=== PATIENT | female | born 1960 | race Caucasian/White ===

== ENCOUNTER → 2016-12-22 | Outpatient (CLI) | payer OTHER ==
--- NOTE | 2016-12-22 14:32 | REP ---
DIGITAL SCREENING MAMMOGRAPHY WITH CAD: COMPARISON MAMMOGRAPHY: January 20, 2015, January 27, 2012, and May 26, 2009. FINDINGS: Mild scattered fibroglandular elements are seen. There is a stable nodular density in the upper outer quadrant of the right breast unchanged. There is a neodensity however in the left central breast inferior and medial quadrant which merits further evaluation. This measures 8 mm in greatest diameter. No spiculation or microcalcification is appreciated. No worrisome skin change is seen. The mammogram is otherwise unremarkable. IMPRESSION: BIRADS category 0 incomplete breast imaging. Nodular neodensity inferomedial quadrant left breast. Diagnostic left breast mammography and focused left breast sonography recommended. BI-RADS/ACR category 0 mammogram, incomplete. Additional imaging and/or prior images are needed before a final assessment can be assigned. This mammogram was interpreted with the aid of an FDA-approved computer-aided detection system. The patient states she/he had a clinical breast exam in December 2016 . The patient letter being requested is M0.
== END ==
LOC: M WHC 11:11
PROVIDERS: ATTEND Nurse Practitioner Family
DX: R92.2 Inconclusive mammogram (principal)

== ENCOUNTER → 2016-12-28 | Outpatient (CLI) | payer OTHER ==
--- NOTE | 2016-12-28 14:13 | REP ---
DIAGNOSTIC MAMMOGRAM LEFT BREAST WITH LEFT BREAST ULTRASOUND: Spot compression views of the left breast are performed and correlated with the recent mammogram of 12/22/2016. These spot compression views confirm the presence of an oval, well-defined nodule in the left breast at about 6-o'clock position. Diameter is approximately 7-8 mm. Real-time sonographic evaluation of left breast is performed inferiorly. At 6-o'clock position, there is an oval cyst measuring 5 x 3 x 6 mm corresponding to the mammographic abnormality. IMPRESSION: ACR 2 benign. Subcentimeter nodule at 6-o'clock position left breast appears benign by mammography and by ultrasound represents a benign cyst. Suggest followup mammogram in 1 year. BI-RADS/ACR category 2 mammogram. Benign finding(s). Routine annual screening mammography (for women over age 40). The patient letter being requested is M1. Signed by Cheo Saha MD 12/28/2016 08:11 P
== END ==
LOC: M RAD 11:49
PROVIDERS: ATTEND Nurse Practitioner Family
DX: Z12.31 Encounter for screening mammogram for malignant neoplasm of breast (principal)

== ENCOUNTER → 2017-06-02 | Outpatient (CLI) | payer OTHER ==
[~2017-06-02] MED LIST: ATEN50TA2 PO; GABA-282 PO; OMEP40CA2 PO; ROLA1CHW PO; SIMV20TA2 PO; TUMS500C PO; VITA1CAP40 PO; ZOFR4TAB3 PO; ZOLP10TA2 PO
--- NOTE | 2017-06-02 13:12 | REP ---
TRIPLE PHASE BONE SCAN ANKLES AND FEET: Following the intravenous administration of 21.8 mCi of technetium 99m MDP, patient's ankles and feet are imaged in the flow phase in the anterior and posterior projections showing symmetrical blood flow. Immediate blood pool and 2 hour delayed images are performed of the ankles and feet in the anterior, posterior, both lateral and plantar projections. There is symmetrical blood pooling and symmetrical osseous delayed activity in the ankles and feet. No abnormal increased or decreased radiotracer uptake is seen in either ankle or foot region. IMPRESSION: Negative triple phase bone scan ankles and feet. Signed by Cheo Saha MD 06/02/2017 01:32 P
== END ==
LOC: M RAD 09:53
PROVIDERS: ATTEND Physical Medicine & Rehabilitation
DX: G90.522 Complex regional pain syndrome I of left lower limb (principal)
CPT/HCPCS: 78315; A9503

== ENCOUNTER → 2017-06-24 | Outpatient (REF) | payer OTHER ==
[2017-06-24 13:23] LABS: ALBUMIN/GLOBULIN RATIO 1.43 (1.00-1.93); ALKALINE PHOSPHATASE 54 U/L (45-117); ALT/SGPT 58 U/L (12-78); ANION GAP 10 MEQ/L (8-16); AST/SGOT 42 U/L (15-37); BLOOD UREA NITROGEN 12 MG/DL (7-18); CALCIUM LEVEL 8.7 MG/DL (8.5-10.1); CARBON DIOXIDE LEVEL 25 MEQ/L (21-32); CHLORIDE LEVEL 108 MEQ/L (98-107); CHOLESTEROL LEVEL 144 MG/DL (<200); CREATININE FOR GFR 0.84 MG/DL (0.55-1.02); FREE T4 1.15 NG/DL (0.76-1.46); GLOMERULAR FILTRATION RATE > 60.0 (>51); GLUCOSE, FASTING 91 MG/DL (70-105); POTASSIUM SERUM 4.1 MEQ/L (3.5-5.1); SODIUM LEVEL 143 MEQ/L (136-145); TOTAL PROTEIN 6.8 GM/DL (6.4-8.2); TRIGLYCERIDES LEVEL 160 MG/DL (<150)
== END ==
LOC: M SFHCPLAZ 10:28
PROVIDERS: ATTEND Nurse Practitioner Family
DX: I10 Essential (primary) hypertension (principal); E78.2 Mixed hyperlipidemia; E55.9 Vitamin D deficiency, unspecified

== ENCOUNTER 2017-07-07 21:14 | Emergency (ER) | payer OTHER ==
[~2017-07-07] VITALS: Ht 157.5 cm; Wt 90.5 kg
[2017-07-07] MEDS ORDERED: GABA-282 PO (21:48)
[2017-07-07] MEDS ORDERED: OMEP40CA2 PO (21:48)
[2017-07-07] MEDS ORDERED: TUMS500C PO (21:48)
[2017-07-07] MEDS ORDERED: SIMV20TA2 PO (21:48)
[2017-07-07] MEDS ORDERED: ROLA1CHW PO (21:48)
[2017-07-07] MEDS ORDERED: ATEN50TA2 PO (21:48)
[2017-07-07] MEDS ORDERED: ZOLP10TA2 PO (21:48)
[2017-07-07] MEDS ORDERED: VITA1CAP40 PO (21:48)
[2017-07-07] MEDS ORDERED: ONDANSETRON 4 MG ORAL DISINTEGRATING TAB (S0181) PO ONE (22:45)
[2017-07-07] MEDS ORDERED: NORCO, ANEXSIA 5/325MG TABLET (HYDROcodone/ACETAMINOPHEN) PO ONE (22:45)
[2017-07-07 23:13] LABS: BASO % 0.6 % (0.0-1.0); EOS # 0.2 K/mm3 (0.0-0.50); EOS % 2.4 % (0.0-3.0); LARGE UNSTAINED CELL # 0.1 K/mm3 (0.0-0.4); LARGE UNSTAINED CELL % 0.9 % (0.0-4.0); LYMPH # 1.7 K/mm3 (1.5-4.5); LYMPH % 19.9 % (24.0-44.0); MEAN CORPUSCULAR HEMOGLOBIN 31.3 pg (27.0-33.0); MEAN CORPUSCULAR HGB CONC 33.2 g/dl (32.0-36.5); MEAN CORPUSCULAR VOLUME 94.2 fl (80.0-96.0); MONO # 0.5 K/mm3 (0.0-0.8); MONO % 6.3 % (0.0-5.0); NEUTROPHILS # 5.7 K/mm3 (1.8-7.7); PLATELET COUNT, AUTOMATED 282 k/mm3 (150-450); RED CELL DISTRIBUTION WIDTH 12.9 % (11.5-14.5); WHITE BLOOD COUNT 8.1 K/mm3 (4.0-10.0)
[2017-07-07 23:30] LABS: ALBUMIN 4.3 GM/DL (3.2-5.2); ALBUMIN/GLOBULIN RATIO 1.08 (1.00-1.93); ALKALINE PHOSPHATASE 64 U/L (45-117); ALT/SGPT 52 U/L (12-78); AMYLASE 41 U/L (25-115); ANION GAP 5 MEQ/L (8-16); AST/SGOT 42 U/L (15-37); BILIRUBIN,DIRECT 0.2 MG/DL (0.0-0.2); BILIRUBIN,TOTAL 0.9 MG/DL (0.2-1.0); BLOOD UREA NITROGEN 11 MG/DL (7-18); CALCIUM LEVEL 9.5 MG/DL (8.5-10.1); CARBON DIOXIDE LEVEL 29 MEQ/L (21-32); CHLORIDE LEVEL 106 MEQ/L (98-107); CREATININE FOR GFR 0.88 MG/DL (0.55-1.02); GLOMERULAR FILTRATION RATE > 60.0 (>51); GLUCOSE, FASTING 126 MG/DL (70-105); POTASSIUM SERUM 3.8 MEQ/L (3.5-5.1); SODIUM LEVEL 140 MEQ/L (136-145); TOTAL PROTEIN 8.3 GM/DL (6.4-8.2)
[2017-07-08] MEDS ORDERED: ZOFR4TAB3 PO (00:04)
[2017-07-08 00:09] VITALS: BP 152/88
--- NOTE | 2017-07-08 00:10 | REPUSA ---
Clinical history: Right upper quadrant pain. Findings: The pancreas is limited in visualization secondary to overlying bowel gas, but appears kimber sly unremarkable. The liver demonstrates increased echotexture and echogenicity, with no mass lesions . The gallbladder is unremarkable. The common bile duct measures 4 mm and is within normal limits. Th e right kidney measures 11 cm in length and is unremarkable. There is no ascites. Impression: Fatty infiltration of the liver. Otherwise unremarkable ultrasound examination of the rig ht upper quadrant.
== END 2017-07-08 00:10 | disposition home or self-care (01) ==
LOC: M ED 21:14
DX: K29.00 Acute gastritis without bleeding (principal); K21.9 Gastro-esophageal reflux disease without esophagitis; I10 Essential (primary) hypertension; E78.70 Disorder of bile acid and cholesterol metabolism, unspecified; Z87.42 Personal history of other diseases of the female genital tract; Z79.899 Other long term (current) drug therapy

== ENCOUNTER → 2017-07-08 | Outpatient (CLI) | payer OTHER | LOC: M WUC 17:19 | PROVIDERS: ATTEND Nurse Practitioner Family | DX: R10.13 Epigastric pain (principal) ==

== ENCOUNTER 2017-07-13 15:57 | Emergency (ER) | payer OTHER ==
[~2017-07-13 15:57] MED LIST changes: +EPINEPHrine 1MG/10ML SYRINGE 1.5IN IV STA
[2017-07-13] MEDS ORDERED: SODIUM BICARBONATE 8.4% INJ 50 ML SYRINGE ONE (15:58)
[2017-07-13] MEDS ORDERED: EPINEPHrine 1MG/10ML SYRINGE 1.5IN ONE (15:58)
[2017-07-13] MEDS ORDERED: SODIUM BICARBONATE 8.4% INJ 50 ML SYRINGE IV STA (15:58)
[2017-07-13] MEDS ORDERED: EPINEPHrine 1MG/10ML SYRINGE 1.5IN IV STA ×8 (16:00→16:33)
[2017-07-13] MEDS ORDERED: methylPREDNISolone INJ 125 MG/2 ML VIAL (J2930) As Ordered ONE (16:12)
[2017-07-13] MEDS ORDERED: diphenhydrAMINE INJ 50MG/ML VIAL (J1200) As Ordered ONE (16:12)
[2017-07-13] MEDS ORDERED: methylPREDNISolone INJ 125 MG/2 ML VIAL (J2930) IV ONE (16:14)
[2017-07-13] MEDS ORDERED: diphenhydrAMINE INJ 50MG/ML VIAL (J1200) IV STA (16:15)
[2017-07-13] MEDS ORDERED: CALCIUM CHLORIDE 10% 1 GM/10 ML SYR IV STA ×2 (16:27→18:00)
[2017-07-13] MEDS ORDERED: CALCIUM CHLORIDE 10% 1 GM in D5W 100 ML IV ONE (16:27)
[2017-07-13 17:19] LABS: ALBUMIN 3.3 GM/DL (3.2-5.2); ALBUMIN/GLOBULIN RATIO 0.97 (1.00-1.93); BILIRUBIN,DIRECT 0.6 MG/DL (0.0-0.2); BILIRUBIN,TOTAL 1.5 MG/DL (0.2-1.0); CALCIUM LEVEL 10.8 MG/DL (8.5-10.1); CREATININE FOR GFR 2.52 MG/DL (0.55-1.02); GLOMERULAR FILTRATION RATE 21.2 (>51); POTASSIUM SERUM 4.3 MEQ/L (3.5-5.1); TOTAL PROTEIN 6.7 GM/DL (6.4-8.2)
[2017-07-13 17:44] LABS: ADD MANUAL DIFFER YES; DIFF SLIDE NUMBER 310; MEAN CORPUSCULAR HEMOGLOBIN 32.3 pg (27.0-33.0); MEAN CORPUSCULAR HGB CONC 31.3 g/dl (32.0-36.5); PLATELET COUNT, AUTOMATED 194 k/mm3 (150-450); RED CELL DISTRIBUTION WIDTH 12.7 % (11.5-14.5); WHITE BLOOD COUNT 11.6 K/mm3 (4.0-10.0)
[2017-07-13 19:12] LABS: BANDS 1 % (< 11)
[2017-07-13 19:13] LABS: SPHEROCYTES 1+
[2017-07-13 19:14] LABS: NUCLEATED RED BLOOD CELL 1 % (0-0); PLATELET CLUMPS SMALL AMT
== END 2017-07-13 19:00 | disposition expired ==
LOC: M ED 15:57
DX: I46.9 Cardiac arrest, cause unspecified (principal); I10 Essential (primary) hypertension; E78.5 Hyperlipidemia, unspecified; K21.9 Gastro-esophageal reflux disease without esophagitis; Z79.899 Other long term (current) drug therapy
CPT/HCPCS: 80048; 80076; 82150; 82550; 82553; 83690; 85025; 92950; 99291; J1200; J2930

== ENCOUNTER → 2017-07-13 | Outpatient (REF) | LOC: M LAB 16:55 | DX: Z02.89 Encounter for other administrative examinations (principal) ==

== ENCOUNTER → 2017-07-13 | Outpatient (CLI) | payer OTHER ==
[~2017-07-13] MED LIST changes: +ISOVUE-370 76% 100ML VIAL (Q9967) As Ordered ONE
--- NOTE | 2017-07-13 15:54 | REP ---
CT abdomen and pelvis with IV, but without oral contrast: History: Right upper quadrant abdominal pain. CT contrast dose: 100 mL of intravenous Isovue 370. 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 The lung bases are clear. There is moderate to marked reflux of injected iodinated contrast inferior vena cava extending through the intrahepatic segment into the infrahepatic segment of the IVC. Reflux is seen filling dilated right hepatic vein, middle hepatic vein, and to a lesser extent left hepatic vein structures. There is evidence of mild four-chamber cardiomegaly. The IVC reflux is compatible with right heart failure. There is diffuse fatty infiltration of the liver. The liver is not felt to be enlarged overall. The spleen is unremarkable. No focal hepatic lesion is seen. There is slight increase in the density of the contents of the gallbladder diffusely with mild pericholecystic fluid. This may reflect sludge or stones in the gallbladder. I see that sonography from just 6 days ago showed neither stones nor sludge in the gallbladder lumen. No pancreatic abnormality is seen. No adrenal lesion is observed. The kidneys are morphologically intact without hydronephrosis. There is no evidence of obstructive lesion. There is a small quantity of ascitic fluid adjacent to the uterus and ovaries in the lower pelvis. There appear to be tubal ligation bands in place one on each side and the adnexa. There is a pattern of submucosal intramural fat in the proximal colon. This can be a feature of old quiescent inflammatory bowel disease. Impression: 1. Considerable contrast reflux into the intrahepatic and infrahepatic inferior vena cava and hepatic veins compatible with right heart failure. Mild four-chamber cardiomegaly. 2. Fatty infiltration of the liver. 3. Minimal pericholecystic fluid and minimal fluid adjacent to the uterus and ovaries. No other acute intra-abdominal abnormality. Signed by Yoni Andujar MD 07/13/2017 06:37 P
== END ==
LOC: M RAD 14:43
PROVIDERS: ATTEND Nurse Practitioner Family
DX: R10.10 Upper abdominal pain, unspecified (principal)
CPT/HCPCS: 74177; Q9967

== ENCOUNTER → 2017-07-13 | Outpatient (REF) | payer OTHER ==
[~2017-07-13] MED LIST changes: -ISOVUE-370 76% 100ML VIAL (Q9967) As Ordered ONE
[2017-07-13 15:05] LABS: BASO % 0.3 % (0.0-1.0); EOS % 0.1 % (0.0-3.0); LARGE UNSTAINED CELL # 0.1 K/mm3 (0.0-0.4); LARGE UNSTAINED CELL % 1.2 % (0.0-4.0); LYMPH # 1.3 K/mm3 (1.5-4.5); LYMPH % 13.8 % (24.0-44.0); MEAN CORPUSCULAR HEMOGLOBIN 31.4 pg (27.0-33.0); MEAN CORPUSCULAR HGB CONC 33.5 g/dl (32.0-36.5); MEAN CORPUSCULAR VOLUME 93.8 fl (80.0-96.0); MONO # 0.5 K/mm3 (0.0-0.8); MONO % 5.8 % (0.0-5.0); NEUTROPHILS # 7.3 K/mm3 (1.8-7.7); NEUTROPHILS % 78.9 % (36.0-66.0); PLATELET COUNT, AUTOMATED 372 k/mm3 (150-450); RED CELL DISTRIBUTION WIDTH 13.2 % (11.5-14.5); WHITE BLOOD COUNT 9.3 K/mm3 (4.0-10.0)
[2017-07-13 15:29] LABS: ALBUMIN 4.2 GM/DL (3.2-5.2); ALBUMIN/GLOBULIN RATIO 1.31 (1.00-1.93); CALCIUM LEVEL 10.1 MG/DL (8.5-10.1); CREATININE FOR GFR 1.83 MG/DL (0.55-1.02); GLOMERULAR FILTRATION RATE 30.6 (>51); POTASSIUM SERUM 4.5 MEQ/L (3.5-5.1); TOTAL PROTEIN 7.4 GM/DL (6.4-8.2)
== END ==
LOC: M SFHCPLAZ 13:55
PROVIDERS: ATTEND Nurse Practitioner Family
DX: R10.10 Upper abdominal pain, unspecified (principal)